=== PATIENT | female | born 1985 | race Caucasian/White ===

== ENCOUNTER 2020-02-01 04:35 | Emergency (ER) | payer MEDICAID ==
[2020-02-01] MEDS ORDERED: OLANZapine 10 MG VIAL IM STA (04:48)
--- NOTE | 2020-02-01 04:48 | ED Physician Documentation ---
PD HPI MHE - Stated complaint Stated Complaint: AB PX
[2020-02-01 06:15] LABS: BASOPHILS # (AUTO) 0.1 10^3/uL (0.0-0.1); BASOPHILS % (AUTO) 0.5 %; EOSINOPHILS % (AUTO) 0.1 %; HGB - HEMOGLOBIN 13.9 g/dL (12.0-16.0); LYMPHOCYTES # (AUTO) 2.5 10^3/uL (1.5-3.5); LYMPHOCYTES % (AUTO) 24.5 %; MEAN CORPUSCULAR HGB CONC 33.7 g/dL (32.0-36.0); MEAN CORPUSCULAR VOLUME 94.9 fL (81.0-99.0); MONOCYTES # (AUTO) 0.6 10^3/uL (0.0-1.0); MONOCYTES % (AUTO) 6.1 %; NEUTROPHILS % (AUTO) 68.4 %; PLT - PLATELET COUNT 250 10^3/uL (130-450); RED BLOOD COUNT 4.34 10^6/uL (4.20-5.40); RED CELL DISTRIBUTION WIDTH 13.2 % (12.0-15.0); WHITE BLOOD COUNT 10.2 x10^3/uL (4.8-10.8)
[2020-02-01 06:30] LABS: ACETAMINOPHEN < 10 ug/mL (10-30); ALBUMIN 4.9 g/dL (3.2-5.5); ALBUMIN/GLOBULIN RATIO 1.5 (1.0-2.2); ALKALINE PHOSPHATASE 75 IU/L (42-121); ALT ALANINE AMINOTRANSFERASE 25 IU/L (10-60); AST ASPARTATE AMINOTRANSFERASE 22 IU/L (10-42); BILIRUBIN,TOTAL 1.8 mg/dL (0.2-1.0); BUN - BLOOD UREA NITROGEN 26 mg/dL (6-20); CALCIUM 9.6 mg/dL (8.5-10.3); CARBON DIOXIDE - CO2 22 mmol/L (21-32); CHLORIDE 104 mmol/L (101-111); CREATININE 1.1 mg/dL (0.4-1.0); GLUCOSE 113 mg/dL (70-100); LIPASE 26 U/L (22-51); SALICYLATE < 6.0 mg/dL; SODIUM 138 mmol/L (135-145); TOTAL PROTEIN 8.1 g/dL (6.7-8.2)
[2020-02-01 06:37] LABS: HCG,QUALITATIVE BLOOD POSITIVE
[2020-02-01 07:52] LABS: MUDS CUTOFF CONCENTRATIONS CUTOFF CONC BELOW:
[2020-02-01] MEDS ORDERED: TOPIRAMATE 25 MG TABLET PO STA (07:53)
[2020-02-01 08:05] LABS: GLUCOSE, URINE (UA) NEGATIVE (NEGATIVE); KETONES,URINE (UA) 15 mg/dL (NEGATIVE); LEUKOCYTE ESTERASE, URINE NEGATIVE (NEGATIVE); NITRITE,URINE NEGATIVE (NEGATIVE); OCCULT BLOOD,URINE NEGATIVE (NEGATIVE); PROTEIN,URINE 30 mg/dL (NEGATIVE); UROBILINOGEN,URINE 0.2 (NORMAL) E.U./dL (NORMAL)
[2020-02-01 08:06] LABS: CLARITY,URINE CLOUDY (CLEAR)
[2020-02-01 08:08] LABS: BILIRUBIN,URINE NEGATIVE (NEGATIVE); ICTOTEST,URINE NEGATIVE
[2020-02-01 08:09] LABS: AMPHETAMINE SCREEN,URINE NEGATIVE (NEGATIVE); BENZODIAZEPINES SCREEN, URINE NEGATIVE (NEGATIVE); COCAINE SCREEN URINE NEGATIVE (NEGATIVE); METHADONE SCREEN, URINE NEGATIVE (NEGATIVE); METHAMPHETAMINES SCREEN, URINE NEGATIVE (NEGATIVE); OPIATE SCREEN, URINE NEGATIVE (NEGATIVE); OXYCODONE SCREEN, URINE NEGATIVE (NEGATIVE); PROPOXYPHENE SCREEN, URINE NEGATIVE (NEGATIVE); TRICYCLIC ANTIDEPRESSANT,URINE NEGATIVE (NEGATIVE)
[2020-02-01 08:22] LABS: BACTERIA,URINE Few /HPF (None Seen); RBC,URINE 0-5 /HPF (0-5); SQUAMOUS EPITHELIAL CELL,UR RARE Squamous (<= Few)
[2020-02-01 08:23] LABS: AMORPHOUS SEDIMENT,UR Marked /LPF; CRYSTALS,URINE 3-5 Calcium Oxalate /LPF
--- NOTE | 2020-02-01 08:32 | Ultrasound Report ---
Reason: low quant no history Procedure Date: 02/01/2020 Accession Number: [id number] / [id number] Procedure: US - OB First Trimester CPT Code: Final Report FULL RESULT: EXAM: FIRST TRIMESTER OBSTETRIC ULTRASOUND (Less than 11 weeks) EXAM DATE: 02/01/2020 08:13 AM. CLINICAL HISTORY: Low quant no history. LMP: Unknown. COMPARISONS: None. TECHNIQUE: Transabdominal and transvaginal ultrasound examination with static image documentation. CLINICAL DATES: Unknown ASSESSMENT: Vascular thickening of the endometrium with possible small central gestational sac, with possible double deciduous sign, without yolk sac or pole, with the structure measuring 1.5 x 1.9 x 1.0 cm MATERNAL STRUCTURES: Uterus: Retroverted. Nabothian cysts. Cervix: Closed. Right Ovary/Adnexa: The ovary measures 3.2 x 2.2 x 2.2 cm, volume 8.1 cc. Unremarkable. Left Ovary/Adnexa: Left ovary not seen Free Fluid: None. Other: None. IMPRESSION: 1. Vascular structure along the endometrium with possible double decidual sign, without yolk sac or pole. Could be an intrauterine though lack of yolk sac or pole is non-confirmatory and degree of vascularity is atypical. Recommend short follow-up until intrauterine can be more confidently determined and viability can be assessed. 2. Left ovary not visualized RADIA
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
[2020-02-01] MEDS ORDERED: POTASSIUM CHLORIDE 20 MEQ TABLET PO STA (15:14)
--- NOTE | 2020-02-02 04:43 | ED Physician Documentation ---
ED Addendum - Addendum Addendum: I assumed care of the patient from Dr. Andino. She was resting at the onset of my shift. I evaluated the patient at 4 AM, she was complaining of headache which is chronic and reportedly typical for her, she also states she is having a bit of difficulty finding some words. Her speech is actually quite articulate and fluid throughout most of our conversation, and she has no deficits on exam, no ataxia or dysmetria, she has 5 out of 5 strength in her upper and lower extremities, sensation is intact light touch and cranial nerves are normal. She reportedly has had some disorganization since her arrival, and currently is improved compared to her intial presentation. However, given her symptoms I feel is reasonable to obtain a CT, I discussed the risks with the patient, she does have a potential early which appears to likely be a miscarriage, but with abdominal shielding the radiation to the fetus should be minimal from a head CT. CT was ordered, and shows no acute intracranial abnormality. I have very low suspicion for acute neurologic pathology, no signs of stroke or meningitis. Patient was signed out with plans to continue looking for proper placement.
--- NOTE | 2020-02-02 05:39 | CT Report ---
Reason: headache, speech difficulty Procedure Date: 02/02/2020 Accession Number: [id number] / [id number] Procedure: CT - HEAD WO CPT Code: Final Report FULL RESULT: EXAM: CT HEAD EXAM DATE: 02/02/2020 05:12 AM. CLINICAL HISTORY: Headache, speech difficulty. COMPARISON: None. TECHNIQUE: Multiaxial CT images were obtained from the foramen magnum to the vertex. Reformats: Sagittal and coronal. IV contrast: None. In accordance with CT protocol optimization, one or more of the following dose reduction techniques were utilized for this exam: automated exposure control, adjustment of mA and/or KV based on patient size, or use of iterative reconstructive technique. FINDINGS: Parenchyma: No intraparenchymal hemorrhage. No evidence of mass, midline shift, or CT findings of infarction. Durán-white differentiation is distinct. Extraaxial Spaces: Normal for age. No subdural or epidural collections identified. Ventricles: Normal in size and position. Sinuses and Orbits: Imaged paranasal sinuses, orbits, and mastoids show no significant abnormality. Bones: No evidence of fracture or calvarial defect. Other: None. IMPRESSION: Normal head CT. RADIA
[2020-02-02] MEDS ORDERED: PRENATAL VITAMIN TABLET PO STA (10:42)
[2020-02-02] MEDS ORDERED: TOPIRAMATE 25 MG TABLET PO STA (10:42)
[2020-02-02] MEDS ORDERED: ACETAMINOPHEN 325 MG TABLET PO STA (10:42)
[2020-02-02] MEDS ORDERED: MULTIVITAMIN W/MINERALS TABLET PO STA (10:43)
--- NOTE | 2020-02-02 10:48 | ED Physician Documentation ---
ED Addendum - Addendum Addendum: 02/02/20 10:44 And this morning after discharge assuming care from change of shift. She is tearful. She is having some difficulty with sentences dropped sure and slower on processing. She is able to relate some recent history and's history as I get from her is that she had had a positive test in the end of September and did have a feeling of early abdominal growth consistent with early and did not have any periods for October and into December. She had a episode of significant vaginal bleeding and passing clots around January 06 and was concerned about a miscarriage at that time. It does not sound like she sought medical help. She has not had any vaginal bleeding since that time. She denies any abdominal cramping or fevers. Her quantitative hCG is falling at a appropriate rate consistent with miscarriage. Her ultrasound yesterday had shown questionable thickening in an area of the endometrium but no obvious IUP. Her quantitative levels would actually be consistent with the miscarriage in January 08 timeframe if she had been truly 11 to 12 weeks the level now would be reflective of a phase out still from the month ago. I discussed with her that she had had miscarriage in the blood tests now are likely reflective of the miscarriage in the end of December.
[2020-02-02 14:18] VITALS: BP 151/73
--- NOTE | 2020-02-27 14:51 | ED Physician Documentation ---
ED Addendum - Addendum Addendum: 02/27/20 14:51 no issues during my shift. signed out to oncoming ED physician.
== END 2020-02-02 15:10 ==
LOC: ED 04:35
DX: R45.851 Suicidal ideations (principal); F33.3 Major depressive disorder, recurrent, severe with psychotic symptoms; T42.6X6A Underdosing of other antiepileptic and sedative-hypnotic drugs, initial encounter; R51 Headache; R47.02 Dysphasia; O03.9 Complete or unspecified spontaneous abortion without complication; Z11.59 Encounter for screening for other viral diseases
CPT/HCPCS: 36415; 70450; 76801; 76817; 80053; 80306; 80307; 80320; 80329; 81001; 83690; 84443; 84702; 84703; 85025; 87635; 96372; 99284; 99285; A9270; 81003; 81599; 87086

== ENCOUNTER 2020-02-01 06:51 | Outpatient (CLI) | payer MEDICAID | END 2020-02-01 06:52 | disposition critical access hospital (66) | LOC: EMS 06:51 | PROVIDERS: ATTEND Surgery | DX: N93.9 Abnormal uterine and vaginal bleeding, unspecified (principal); R46.89 Other symptoms and signs involving appearance and behavior | CPT/HCPCS: A0425; A0429 ==

== ENCOUNTER 2024-05-31 13:36 | Emergency (ER) | payer MEDICAID, OTHER ==
[2024-05-31 15:03] VITALS: BP 141/98; O2SAT 100
--- NOTE | 2024-05-31 17:42 | ED Physician Documentation ---
History of Present Illness - Stated complaint Stated Complaint: MED REFILL - Chief complaint Chief Complaint: General - History obtained from History obtained from: Patient - History of Present Illness Timing: Today Pain level max: 0 Pain level now: 0 - Additonal information Additional information: Patient is a 38-year-old female who presents to the emergency department stating that she is out of her Topamax. She states that she has been on this for several years. She states that she has a history of a traumatic brain injury as well as depression. She states that the Topamax helps to regulate her mood. She recently moved here from [place]. She is staying with family. No new injuries. No fevers. No chills. Not suicidal or homicidal. Patient is not or breast-feeding. Review of Systems Constitutional: denies: Fever, Chills Respiratory: denies: Cough GI: denies: Vomiting, Diarrhea : denies: Now EGA Skin: denies: Rash Musculoskeletal: denies: Neck pain, Back pain PD PAST MEDICAL HISTORY - Past Medical History Past Medical History: Yes Respiratory: Asthma Neuro: Head injury, Seizure disorder, Other Endocrine/Autoimmune: None DRAMA TEACHER: Other : None HEENT: None Psych: Post traumatic stress disorder, Other Musculoskeletal: Osteoarthritis Other Past Medical History: cervical cancer - Past Surgical History Past Surgical History: Yes Ortho: Other /DRAMA TEACHER: section - Present Medications Home Medications: Ambulatory Orders Medication Instructions Recorded Confirmed Topiramate [Topamax] 50 mg PO DAILY #42 tab 05/31/24 - Allergies Allergies/Adverse Reactions: Allergies Allergy/AdvReac Type Severity Reaction Status Date / Time latex Allergy Unknown Verified 05/31/24 15:00 morphine Allergy Anaphylaxis Verified 05/31/24 15:00 Sulfa (Sulfonamide Allergy Anaphylaxis Verified 05/31/24 15:00 Antibiotics) - Social History Does the pt smoke?: No Smoking Status: Never smoker Does the pt drink ETOH?: No Does the pt have substance abuse?: No - Immunizations Immunizations are current?: Yes - POLST Patient has POLST: No PD ED PE NORMAL - Vitals Vital signs reviewed: Yes - General General: Alert and oriented X 3, No acute distress, Well developed/nourished - HEENT HEENT: Atraumatic, PERRL, Moist mucous membranes - Neck Neck: Supple, no meningeal sign - Cardiac Cardiac: RRR, Strong equal pulses - Respiratory Respiratory: No respiratory distress, Clear bilaterally - Abdomen Abdomen: Soft, Non tender, Non distended - Derm Derm: Warm and dry - Extremities Extremities: No edema, No calf tenderness / cord - Neuro Neuro: Alert and oriented X 3, 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, No motor deficit, No sensory deficit, Normal speech - Psych Psych: Normal mood, Normal affect Results - Vitals Vitals: Vital Signs - 24 hr 05/31/24 15:00 Temperature 37.1 C Heart Rate 90 Respiratory 18 Rate Blood Pressure 141/98 H O2 Saturation 100 Oxygen O2 Source Room air PD Medical Decision Making - ED course Complexity details: reviewed results, re-evaluated patient, considered differential, d/w patient ED course: Patient is out of her Topamax, will restart at 50 mg daily, increase to 100 mg daily and have her follow-up with one of the walk-in clinics or primary care clinic to finish the titration of her Topamax. Patient has no emergency medical condition at this time. Not suicidal or homicidal. Patient counseled regarding signs and symptoms for which I believe and urgent re-evaluation would be necessary. Patient with good understanding of and agreement to plan and is comfortable going home at this time This document was made in part using voice recognition software. While efforts are made to proofread this document, sound alike and grammatical errors may occur. Departure - Departure Disposition: 01 Home, Self Care Clinical Impression: Medication refill Condition: Good Instructions: Topiramate tablets Follow-Up: your,doctor in 1 week [Other] [facility] [place] [Provider Group] Primary/Walk In [place] [Provider Group] [facility] [place] [Provider Group] Prescriptions: Topiramate [Topamax] 50 mg PO DAILY #42 tab Comments: We have started you back on her Topamax, as we discussed this will need to be increased over the next few weeks to your normal level. Your prescription was sent to [facility] in [place]. Please follow-up with a walk-in clinic until you have established with a primary care provider. Forms: PCP List
== END 2024-05-31 17:48 | disposition home or self-care (01) ==
LOC: ED 13:36
DX: Z76.0 Encounter for issue of repeat prescription (principal); J45.909 Unspecified asthma, uncomplicated; Z87.820 Personal history of traumatic brain injury
CPT/HCPCS: 99281; 99282